=== PATIENT | male | born 1995 | race Hispanic/Latino ===

== ENCOUNTER 2018-01-13 09:11 | Emergency (ER) | payer SELFPAY ==
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
[2018-01-13 09:40] VITALS: BP 134/86; TEMP 96.8
[2018-01-13] MEDS ORDERED: IBUPROFEN 200 MG TAB PO ONE (09:48)
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
[2018-01-13 10:35] VITALS: O2SAT 97
== END 2018-01-13 10:35 | disposition home or self-care (01) ==
LOC: ER 09:11
DX: T14.8XXA Other injury of unspecified body region, initial encounter (principal); M54.5 Low back pain; M25.562 Pain in left knee; V53.5XXA Driver of pick-up truck or van injured in collision with car, pick-up truck or van in traffic accident, initial encounter; Y92.410 Unspecified street and highway as the place of occurrence of the external cause